=== PATIENT | female | born 1970 | race Asian ===

== ENCOUNTER 2022-07-26 13:40 | Emergency (ER) | payer OTHER ==
[~2022-07-26] VITALS: Ht 157.5 cm; Wt 65.9 kg
[~2022-07-26 13:40] MED LIST: NOCURR
[2022-07-26 13:47] VITALS: BP 146/94
[2022-07-26] MEDS ORDERED: LOSA-382 PO (13:55)
[2022-07-26] MEDS ORDERED: MONT-35 PO (13:55)
[2022-07-26] MEDS ORDERED: METF-1211 PO (13:55)
[2022-07-26 14:00] LABS: GLUCOMETER DEV NAME(LOC) ERT.5; GLUCOSE,POINT OF CARE 164 MG/DL (70-110)
== END 2022-07-26 16:29 | disposition left against medical advice (07) ==
LOC: EMS 13:48
DX: Z53.21 Procedure and treatment not carried out due to patient leaving prior to being seen by health care provider (principal)
CPT/HCPCS: 82962